=== PATIENT | female | born 1990 | race Caucasian/White ===

== ENCOUNTER 2018-12-02 21:21 | Inpatient (IN) | payer BC ==
[~2018-12-02 21:21] MED LIST: Bupivacaine/Epinephrine 0.25% 30 ML VIAL ONE; Lidocaine 2% MPF 10 ML AMP (For Epidural Use) ONE
--- NOTE | 2018-12-02 22:25 | PDOC.LDHP ---
Labor and Delivery H&P Chief complaint: contractions, loss of fluid, abdominal pain HPI: 40.1 wk w srom at 1700 Current gestational age (weeks): 40 Due date: 12/01/18 Dating criteria: last menstrual period, first trimester ultrasound Grav: 1 Para: 0 Current complications: none Current medications: none Previous surgical history: none Social history: none - Physical Exam Vital signs reviewed and normal: yes General: NAD, resting, breathing through contractions Heart: RRR Lungs: nonlabored breathing Abdomen: NTTP Extremeties: no edema FHT: category 1 Gonzalez contractions every: 5 - Vaginal Exam cm dilated: 3 Effacement: 90% Station: -2 - OB Labs Blood type: A RH: negative Antibody Screen: negative HIV: negative RPR: negative HEPSAg: negative 1 hour GCT: negative GBS: negative Urine drug screen: not done Rubella: immune - Assessment L&D Assessment: term patient in labor - Plan Plan: admit to L&D, anesthesia consult for pain management
[2018-12-02 22:34] VITALS: BMI 28.8
[2018-12-02] MEDS ORDERED: Lidocaine 1% (PF) 30 ML VIAL SC PRN (23:04)
[2018-12-02] MEDS ORDERED: Lactated Ringer's 1,000 ML IV SCH (23:04)
[2018-12-02] MEDS ORDERED: Ibuprofen 800 MG TAB PO PRN (23:04)
[2018-12-02] MEDS ORDERED: HYDROcodone/Acetaminophen 5/325 mg Tablet PO PRN ×2 (23:04)
[2018-12-02] MEDS ORDERED: NS w/ Oxytocin 10 units 500 ML IV SCH (23:04)
[2018-12-02] MEDS ORDERED: NS / Oxytocin 40 units/1000ml 1,000 ML IV PRN (23:04)
[2018-12-02] MEDS ORDERED: Promethazine HCl 25 MG/ML VIAL IM PRN (23:04)
[2018-12-02] MEDS ORDERED: Butorphanol Tartrate 1 MG/ML VIAL SLOW IVP PRN (23:04)
[2018-12-02] MEDS ORDERED: Ondansetron PF 4 MG/2 ML Vial IVP PRN (23:04)
[2018-12-02 23:22] LABS: Hemoglobin 12.9 g/dL (12.0-16.0); Mean Corpuscular HGB CONC 35.1 g/dL (32.0-36.0); Mean Corpuscular Hemoglobin 31.1 pg (27.0-31.0); Mean Corpuscular Volume 88.5 fL (78.0-98.0); Mean Platelet Volume 8.8 fL (7.4-10.4); Platelet Count 200 thou/uL (130-400); RBC Distribution Width 12.3 % (11.5-14.5); Red Blood Cell (RBC) Count 4.14 mill/uL (4.20-5.40)
[2018-12-02] MEDS: Lactated Ringer's 1,000 ML IV SCH (23:30)
[2018-12-03] LABS: HBSAg Index 0.28 S/CO (0-0.99); Hep B Surf Ag Non-Reactive S/CO (NonReactive)
[2018-12-03 00:01] LABS: Syphilis Antibody Nonreactive (Nonreactive); Syphilis Antibody Index 0.04 S/CO (<1.00 Non-Reactive)
[2018-12-03] MEDS ORDERED: Fentanyl 4 mcg/Bup 0.1% Cadd 100 ML ONE ×3 (01:01→13:43)
[2018-12-03] MEDS ORDERED: Naloxone HCl 0.4 mg/ml Vial IVP PRN ×6 (01:41→16:43)
[2018-12-03] MEDS ORDERED: Ondansetron PF 4 MG/2 ML Vial IVP PRN ×4 (01:41→18:53)
[2018-12-03] MEDS ORDERED: diphenhydrAMINE 50 MG/ML VIAL IVP PRN ×3 (01:41→16:43)
[2018-12-03] MEDS ORDERED: Eucerin (Mineral Oil/Petrolatum,White) 30 gm Jar TOP PRN ×3 (01:41→16:43)
[2018-12-03] MEDS ORDERED: Acetaminophen 325 MG TAB PO PRN ×2 (01:41→18:53)
[2018-12-03] MEDS ORDERED: Lactated Ringer's 500 ML IV PRN (01:41)
[2018-12-03] MEDS ORDERED: Promethazine HCl 25 MG/ML VIAL IM PRN ×3 (01:41→16:43)
[2018-12-03] MEDS ORDERED: ePHEDrine/0.9% NaCl/PF SYRINGE 50 mg/10 ml SLOW IVP PRN (01:41)
[2018-12-03] MEDS ORDERED: Communication Order-Pharmacy FS SCH ×3 (01:45→16:45)
[2018-12-03] MEDS: Lactated Ringer's 1,000 ML IV SCH ×2 (06:30→11:18)
[2018-12-03] MEDS: Fentanyl 4 mcg/Bupivacaine 0.1% Cassette 100 ML EPIDURAL SCH ×2 (08:30→13:51)
[2018-12-03] MEDS ORDERED: Ondansetron PF 4 MG/2 ML Vial ONE ×2 (14:34→15:21)
[2018-12-03] MEDS ORDERED: Lidocaine 2% MPF 10 ML AMP (For Epidural Use) ONE ×2 (14:34→15:49)
[2018-12-03] MEDS ORDERED: Clindamycin/D5W 900 mg/50 ml Premix Bag ONE (14:52)
[2018-12-03] MEDS ORDERED: Ampicillin 2 GM in Sodium Chloride 0.9% 100 ML IVPB SCH (15:00)
[2018-12-03] MEDS ORDERED: Gentamicin Sulfate 80 MG in Premix Bag 1 BAG IVPB SCH (15:00)
[2018-12-03] MEDS ORDERED: Ampicillin 1,000 MG/10 ML VIAL SLOW IVP SCH (15:00)
[2018-12-03] MEDS ORDERED: Lidocaine 1% (PF) 30 ML VIAL SC PRN (15:11)
[2018-12-03] MEDS ORDERED: NS / Oxytocin 40 units/1000ml 1,000 ML IV PRN (15:11)
[2018-12-03] MEDS ORDERED: Vancomycin HCl 1 GM in Premix Bag 1 BAG IVPB STA (15:11)
[2018-12-03] MEDS ORDERED: Acetaminophen 1,000 MG in Premix Bag 1 BAG IVPB STA (15:12)
[2018-12-03] MEDS ORDERED: Bicitra 30 ML UDCUP PO SCH (15:15)
[2018-12-03] MEDS ORDERED: L&D-Morphine 4 MG/ML VIAL SLOW IVP PRN (15:16)
[2018-12-03] MEDS ORDERED: HYDROmorphone 2 MG/ML VIAL SLOW IVP PRN (15:16)
[2018-12-03] MEDS ORDERED: Ondansetron HCl/PF 4 MG/2 ML Vial IVP PRN (15:16)
[2018-12-03] MEDS ORDERED: Meperidine HCl/PF 25 MG/ML VIAL SLOW IVP PRN (15:16)
[2018-12-03] MEDS ORDERED: Naloxone HCl 0.4 mg/ml Vial IV PRN ×2 (15:17→16:43)
[2018-12-03] MEDS ORDERED: Ketorolac Tromethamine 30 MG/ML VIAL IVP PRN ×2 (15:17→16:43)
[2018-12-03] MEDS ORDERED: Promethazine HCl 25 MG SUPP PR PRN ×2 (15:17→16:43)
[2018-12-03] MEDS ORDERED: Clindamycin/D5W 900 MG in Premix Bag 1 BAG IVPB STA (15:18)
[2018-12-03] MEDS ORDERED: PHENYLEPHRINE-NS 100 MCG/ML 10 ML SYRINGE ONE (15:21)
[2018-12-03] MEDS ORDERED: Lidocaine 2% 10 ML INJ ONE ×2 (15:21→15:48)
[2018-12-03] MEDS ORDERED: Oxytocin 10 UNITS/ML VIAL ONE (15:21)
[2018-12-03] MEDS ORDERED: ePHEDrine/0.9% NaCl/PF SYRINGE 50 mg/10 ml ONE (15:21)
[2018-12-03] MEDS ORDERED: Ketorolac Tromethamine 30 MG/ML VIAL IVP SCH (15:30)
[2018-12-03] MEDS ORDERED: Fentanyl 100 MCG/2 ML VIAL ONE (15:54)
[2018-12-03] MEDS ORDERED: Ketorolac Tromethamine 30 MG/ML VIAL ONE (16:44)
[2018-12-03] MEDS ORDERED: MORPHINE 5 MG/10 ML PF VIAL ONE (16:47)
[2018-12-03] MEDS ORDERED: Meperidine HCl/PF 25 MG/ML VIAL ONE (17:32)
--- NOTE | 2018-12-03 17:44 | OP ---
DATE OF PROCEDURE: 12/03/2018 PREOPERATIVE DIAGNOSIS: Chorioamnionitis with failure to progress at 40+ weeks gestation. POSTOPERATIVE DIAGNOSIS: Chorioamnionitis with failure to progress at 40+ weeks gestation. PROCEDURE: Primary low transverse section without extension. SPLITTING MACHINE OPERATOR: Lamont Thrasher MD ANESTHESIA: Epidural; Lloyd Taylor MD COMPLICATIONS: None. DRAINS: Triplett to gravity. MEDICATIONS: Vancomycin/clindamycin/gentamicin pre-incision and DVT prophylaxis with SCDs. OPERATIVE FINDINGS: 1. Vigorous male , 8 and 9 Apgars, 8 pounds 6 ounces, cephalic presentation, nursery. 2. Placenta removed manually and sent for Pathology. 3. Uterus with mild atony in first 1 to 3 minutes post delivery, responsive to IV Pitocin. 4. Hemostasis, clear urine, and counts correct at the end of the procedure. ESTIMATED BLOOD LOSS: Subjectively 1100 mL. QUANTITATIVE BLOOD LOSS: 1550 mL. DESCRIPTION OF PROCEDURE: After obtaining appropriate operative consent, the patient was taken to the operating room, where epidural had been dosed to appropriate level. Pfannenstiel incision was made and carried down to the fascia. Device was sharply extended superiorly and laterally with curved Dyer scissors. Rectus dissected off sharply superiorly and inferiorly, divided in midline. Peritoneum entered bluntly, taking care to avoid trauma to the underlying viscera. Ace O retractor was placed inside. Vesicouterine peritoneal fold was identified and low-transverse hysterotomy was made at the level of the vesicouterine peritoneum. The infant's head was elevated to the hysterotomy, delivered, suctioned, cord clamped and cut, and handed off to the Team in attendance. Usual cord blood sample was obtained. Placenta was removed manually. Uterus was left in situ and massaged to help achieve tone. The hysterotomy was noted to be without extension and closed using a running locking #1 Monocryl suture in a 2 layer fashion. Good hemostasis was noted. The gutters were irrigated out bilaterally. Hysterotomy reinspected and noted to be dry. The Ace O retractor was removed. Rectus inspected and noted to be dry. Fascia was reapproximated in a running continuous 0 PDS suture. Subcutaneous tissue was irrigated, rendered hemostatic with Bovie cautery, and reapproximated using a 2-0 plain gut. Skin was reapproximated using 4-0 Monocryl and Dermabond. The patient was taken to the recovery room in good condition with firm fundus and normal amount of bleeding. The patient remained with pulse less than 100 throughout. Job ID: [id number]
[2018-12-03] MEDS ORDERED: Lanolin Ointment 7 GM TUBE TOP PRN (18:53)
[2018-12-03] MEDS ORDERED: Adacel (T-DAP) 0.5 ML SYRINGE IM ONE (18:53)
[2018-12-03] MEDS ORDERED: Lactated Ringer's 1,000 ML IV SCH (18:53)
[2018-12-03] MEDS ORDERED: diphenhydrAMINE 25 MG CAP PO PRN (18:53)
[2018-12-03] MEDS ORDERED: NS / Oxytocin 40 units/1000ml 1,000 ML IV SCH (18:53)
[2018-12-03] MEDS ORDERED: Measles/Mumps/Rubella 10 MCG/0.5 ML VIAL SC ONE (18:53)
[2018-12-03] MEDS ORDERED: Misoprostol 200 MCG TAB PR PRN (18:53)
[2018-12-03] MEDS ORDERED: Ibuprofen 800 MG TAB PO SCH (22:00)
[2018-12-03] MEDS: Docusate Calcium (SURFAK) 240 MG CAP PO SCH (22:32)
--- NOTE | 2018-12-03 23:46 | OP ---
DATE OF PROCEDURE: 12/03/2018 This dictation serves as documentation and I was 1st assist to a primary performed by Dr. Ollie Seay on patient, Anna Mccarty, for failure to progress and chorioamnionitis. For complete details, please refer to Dr. Seay's operative note. Job ID: [id number]
[2018-12-04] MEDS: Ketorolac Tromethamine 30 MG/ML VIAL IVP PRN ×3 (00:26→14:45)
[2018-12-04] MEDS: Lactated Ringer's 1,000 ML IV SCH ×4 (01:05→23:15)
[2018-12-04] MEDS ORDERED: Fentanyl 4 mcg/Bupivacaine 0.1% Cassette 100 ML EPIDURAL SCH (03:30)
[2018-12-04] MEDS: HYDROcodone/Acetaminophen 5/325 mg Tablet PO PRN ×4 (04:39→23:38)
[2018-12-04] MEDS ORDERED: Zolpidem Tartrate 5 MG TAB PO PRN (04:45)
[2018-12-04] MEDS ORDERED: Meperidine HCl/PF 25 MG/ML VIAL IM PRN (04:45)
[2018-12-04 05:48] LABS: Hemoglobin 9.1 g/dL (12.0-16.0); Mean Corpuscular HGB CONC 33.8 g/dL (32.0-36.0); Mean Corpuscular Hemoglobin 30.8 pg (27.0-31.0); Mean Corpuscular Volume 90.9 fL (78.0-98.0); Mean Platelet Volume 8.4 fL (7.4-10.4); Platelet Count 176 thou/uL (130-400); RBC Distribution Width 12.6 % (11.5-14.5); Red Blood Cell (RBC) Count 2.96 mill/uL (4.20-5.40); White Blood Cell (WBC) Count 21.8 thou/uL (4.8-10.8)
[2018-12-04] MEDS: Docusate Calcium (SURFAK) 240 MG CAP PO SCH ×2 (09:17→21:50)
[2018-12-04] MEDS: Simethicone Chewable 80 MG TAB PO PRN (09:17)
[2018-12-04] MEDS: Prenatal Vitamin 1 TAB PO SCH (09:18)
[2018-12-04] MEDS: Clindamycin/D5W 900 MG in Premix Bag 1 BAG IVPB SCH ×2 (10:41→19:27)
[2018-12-04] MEDS: Vancomycin HCl 1 GM in Premix Bag 1 BAG IVPB SCH ×2 (11:20→23:16)
[2018-12-04] MEDS: Gentamicin Sulfate 80 MG in Premix Bag 1 BAG IVPB SCH ×2 (13:26→20:55)
--- NOTE | 2018-12-04 13:57 | PRG ---
DATE OF SERVICE: 12/04/2018 TIME OF SERVICE: 0730 hours. SUBJECTIVE: The patient is resting comfortably now approximately 15 hours status post primary section for chorioamnionitis, failure to progress. The patient had 1550 mL QBL. Hematocrit this morning is decreased from 37% to 27%, which is consistent with the patient's EBL. OBJECTIVE: VITAL SIGNS: T-max 98.7, pulse 82, respirations 18, blood pressure 121/77. HEENT: Within normal limits. LUNGS: Clear to auscultation bilaterally. HEART: Regular rhythm. ABDOMEN: Soft and nontender. Her incision is dry. Fundus is firm. Normal lochia. EXTREMITIES: No clubbing, cyanosis, or edema. IMPRESSION: 1. Chorioamnionitis. The patient's antibiotics were inadvertently stopped on transfer from recovery yesterday, so the patient received one dose of both vancomycin, gentamicin, clindamycin. We will go ahead and restart all three. We will discontinue this evening or tomorrow morning if the patient remains afebrile. 2. Anemia secondary to peripartum blood loss secondary to uterine atony with chorioamnionitis. Atony is resolved and resolved within about 2 to 3 minutes of delivery. The patient is tolerating hematocrit of 27% well without any evidence of inability to handle this. I do not anticipate need for transfusion. 3. The patient will continue with routine post section care other than continuing antibiotics for now. Anticipate discharge home on Sunday on postop day #3. Job ID: [id number]
[2018-12-04] MEDS: Ibuprofen 800 MG TAB PO SCH (21:50)
[2018-12-05] MEDS: Clindamycin/D5W 900 MG in Premix Bag 1 BAG IVPB SCH (03:17)
[2018-12-05] MEDS: Gentamicin Sulfate 80 MG in Premix Bag 1 BAG IVPB SCH (04:33)
[2018-12-05] MEDS: Ibuprofen 800 MG TAB PO SCH ×3 (05:30→21:32)
--- NOTE | 2018-12-05 08:23 | PDOC.PP ---
Post Progress Note Post Day #: 2 PO intake tolerated: yes Flatus: yes Ambulation: yes Vital Signs (12 hours) Temp Pulse Resp BP BP Pulse Ox 12/05/18 08:03 98.6 F 88 20 126/95 H 98 12/05/18 03:15 98.7 F 63 18 120/67 99 12/04/18 23:20 98.9 F 61 18 137/77 99 12/04/18 20:57 98.0 F 78 18 134/76 100 Weight Weight 195 lb - Physical Examination General: NAD Cardiovascular: no m/r/g, RRR Respiratory: clear to auscultation bilaterally Abdominal: + bowel sounds, lochia, no distention Skin: CS incision dry & intact, no rash Neurological: no gross focal deficits Psychiatric: A&Ox3, normal affect Result Diagrams: 12/04/18 04:53 Additional Labs: Post Labs Blood Type A NEGATIVE 12/03/18 03:34 Hep Bs Antigen Non-Reactive S/CO (NonReactive) 12/02/18 23:07 (1) Chorioamnionitis Code(s): O41.1290 - CHORIOAMNIONITIS, UNSP TRIMESTER, NOT APPLICABLE OR UNSP Status: Acute - Assessment/Plan dc abx. home in am
[2018-12-05] MEDS: Lactated Ringer's 1,000 ML IV SCH ×3 (09:27→23:43)
[2018-12-05] MEDS: Prenatal Vitamin 1 TAB PO SCH (09:28)
[2018-12-05] MEDS: Docusate Calcium (SURFAK) 240 MG CAP PO SCH ×2 (09:28→21:32)
[2018-12-05] MEDS: Simethicone Chewable 80 MG TAB PO PRN (09:28)
[2018-12-05] MEDS: HYDROcodone/Acetaminophen 5/325 mg Tablet PO PRN ×3 (09:32→19:35)
[2018-12-06] MEDS: HYDROcodone/Acetaminophen 5/325 mg Tablet PO PRN ×5 (00:01→20:54)
[2018-12-06] MEDS: Ibuprofen 800 MG TAB PO SCH ×3 (05:56→22:22)
[2018-12-06] MEDS: Lactated Ringer's 1,000 ML IV SCH ×3 (06:08→22:51)
[2018-12-06] MEDS: Prenatal Vitamin 1 TAB PO SCH (09:14)
[2018-12-06] MEDS: Docusate Calcium (SURFAK) 240 MG CAP PO SCH ×2 (09:14→20:54)
--- NOTE | 2018-12-06 11:00 | PDOC.PP ---
Post Progress Note Post Day #: 3 PO intake tolerated: yes Flatus: yes Ambulation: yes Vital Signs (12 hours) Temp Pulse Resp BP Pulse Ox 12/06/18 08:42 98.1 F 107 H 20 122/80 99 12/06/18 03:55 97.8 F 92 18 128/80 100 12/06/18 00:00 98.4 F 71 20 143/86 H 99 Weight Weight 195 lb - Physical Examination General: NAD Cardiovascular: no m/r/g, RRR Respiratory: clear to auscultation bilaterally, non-labored breathing Abdominal: + bowel sounds, lochia, no distention Skin: CS incision dry & intact, no rash Psychiatric: A&Ox3, normal affect Result Diagrams: 12/04/18 04:53 Additional Labs: Post Labs Blood Type A NEGATIVE 12/03/18 03:34 Hep Bs Antigen Non-Reactive S/CO (NonReactive) 12/02/18 23:07 (1) Chorioamnionitis Code(s): O41.1290 - CHORIOAMNIONITIS, UNSP TRIMESTER, NOT APPLICABLE OR UNSP Status: Acute - Assessment/Plan ding well afebrile >24 off abx. dc home fu 6 wk
[2018-12-06] MEDS: Simethicone Chewable 80 MG TAB PO PRN (11:03)
[2018-12-07] MEDS: HYDROcodone/Acetaminophen 5/325 mg Tablet PO PRN ×3 (00:54→11:06)
--- NOTE | 2018-12-07 04:59 | PDOC.PP ---
Post Progress Note Post Day #: 3 Subjective: Doing well, POD 3 PO intake tolerated: yes Flatus: yes Ambulation: yes Vital Signs (12 hours) Temp Pulse Resp BP Pulse Ox 12/06/18 20:08 97.8 F 88 18 142/87 H 100 Weight Weight 195 lb last temps and BPs reviewed - Physical Examination General: NAD Cardiovascular: no m/r/g Respiratory: clear to auscultation bilaterally Abdominal: + bowel sounds, lochia, no distention, appropriately TTP Extremities: negative homans (B) Skin: CS incision dry & intact (Sutured), no rash Neurological: no gross focal deficits Psychiatric: A&Ox3, normal affect Result Diagrams: 12/04/18 04:53 Additional Labs: Post Labs Blood Type A NEGATIVE 12/03/18 03:34 Hep Bs Antigen Non-Reactive S/CO (NonReactive) 12/02/18 23:07 (1) delivery delivered Code(s): O82 - ENCOUNTER FOR DELIVERY WITHOUT INDICATION Status: Acute - Assessment/Plan POD3 resolved IAI...afebrile. Plan sarah DC to home today. Incision C/D/I. Some SBPs with values in low 140s...can recheck BP in 1 weeks, max 2 weeks PP. Final DXs: S/P Section Inta-amniotic infection
[2018-12-07] MEDS: Ibuprofen 800 MG TAB PO SCH ×2 (05:51→13:40)
[2018-12-07] MEDS: Prenatal Vitamin 1 TAB PO SCH (08:01)
[2018-12-07] MEDS: Docusate Calcium (SURFAK) 240 MG CAP PO SCH (08:01)
[2018-12-07 09:22] VITALS: BP 136/80; TEMP 98.1
[2018-12-07] MEDS: Lactated Ringer's 1,000 ML IV SCH (09:29)
== END 2018-12-07 13:55 | disposition home or self-care (01) | DRG 786 ==
LOC: L&D/OP 21:21 → L&D 22:32 → 3SW 12-03 20:05
PROVIDERS: ADMIT Obstetrics & Gynecology; ATTEND Obstetrics & Gynecology
PROC: 10D00Z1 Extraction of Products of Conception, Low, Open Approach (ICD-10-PCS; principal; 2018-12-03)
DX: O48.0 Post-term pregnancy (principal); O41.1230 Chorioamnionitis, third trimester, not applicable or unspecified; O72.1 Other immediate postpartum hemorrhage; Z3A.40 40 weeks gestation of pregnancy; O62.0 Primary inadequate contractions; Z37.0 Single live birth
CPT/HCPCS: 36415; 51702; 85027; 86780; 86850; 86900; 86901; 87340; 88307; 90707; 90715; 99285; J0290; J1200; J1580; J1885; J2001; J2175; J2270; J2405; J2590; J3010; J3370; J3490